=== PATIENT | female | born 1990 | race Caucasian/White ===

== ENCOUNTER 2017-07-08 16:43 | Inpatient (IN) | payer SELFPAY ==
--- NOTE | 2017-07-08 19:33 | ULT ---
OBSTETRIC SONOGRAM 07/08/17 HISTORY: Twin with demise documented at an outside institution. FINDINGS: Multiple transabdominal sonographic views of the gravid uterus show twin intrauterine gestation in ve rtex and transverse presentation. Amniotic fluid is decreased. No heart motion is seen to be associat ed with either fetus. Measurements correlate with 14 weeks, 1 day and 14 weeks, 4 days gestational size. No free fluid is apparent within the maternal pelvis. IMPRESSION: Confirmation of twin nonviable fetuses. POS: NAS
[2017-07-08 19:57] LABS: Bilirubin Negative (Negative); Blood, Urine Negative (Negative); Glucose, Urine (Dipstick) Negative (Negative); Ketone, Urine 80 mg/dL (Negative); Nitrite Negative (Negative); Protein, Urine (Dipstick) Negative (Neg-Trace); Urobilinogen 0.2 mg/dL (0.2-1.0)
[2017-07-08] MEDS ORDERED: Acetaminophen 325 MG TAB ONE (19:58)
[2017-07-08] MEDS ORDERED: Promethazine HCl 25 MG/ML VIAL IM PRN (21:22)
[2017-07-08] MEDS ORDERED: Ondansetron HCl/PF 4 MG/2 ML Vial IVP PRN (21:22)
[2017-07-08 21:51] VITALS: BMI 22.1
[2017-07-08] MEDS: Misoprostol 200 MCG TAB VAG SCH (22:41)
[2017-07-08 22:44] LABS: Hematocrit 39.4 % (36.0-47.0); Mean Platelet Volume 6.1 fL (7.4-10.4); Red Blood Cell (RBC) Count 4.44 mill/uL (4.20-5.40); White Blood Cell (WBC) Count 9.5 thou/uL (4.8-10.8)
[2017-07-08 23:24] LABS: Amphetamine Detected (NotDetected); Methamphetamine Detected (NotDetected)
[2017-07-08 23:25] LABS: Methadone Not Detected (NotDetected)
--- NOTE | 2017-07-09 01:30 | HP ---
DATE OF SERVICE: 07/08/2017 TIME OF SERVICE: 2020 hours. PRESENTING COMPLAINT: A 14-week twin IUFD with cramping and bleeding. HISTORY OF PRESENT ILLNESS: Ms. Alfonso is a 26-year-old 4, para 2, AB 1, now 3, who presen ts with 2 week history of twin IUFD. She was seen in [place] 2 weeks ago and told she had twin IUFD a nd was told to follow up in [place]. However, the patient presents this evening to the emergency room with complaining of cramping and bleeding. She denies fever, rupture of membranes. She denies feta l movement. OB AND [employer] HISTORY: x2, one for failure to progress, one for the repeat SAB x1. No D&C. PAST MEDICAL HISTORY: Hypertension, on atenolol in the past, no meds now. SURGICAL HISTORY: x2, tonsils and adenoids, and PE tubes. MEDICATIONS: None. ALLERGIES: None. SOCIAL HISTORY: Denies tobacco, alcohol, or IV drug abuse. FAMILY HISTORY: Noncontributory. REVIEW OF SYSTEMS: Noncontributory. PHYSICAL EXAMINATION: GENERAL: White female, in no acute distress. VITAL SIGNS: Temperature 98.7, respirations 18, blood pressure 128/82. HEENT: Within normal limits. LUNGS: Clear to auscultation bilaterally. HEART: Regular rhythm. BREASTS: No masses bilaterally. ABDOMEN: Soft, nontender. Fundal height 16 cm. FHTs absence. PELVIC: Vulva, lesions. Vagina, discharge. Cervix, soft, slight bleeding, not grossly dilated. EXTREMITIES: Without clubbing, cyanosis or edema. LABORATORY AND X-RAY FINDINGS: The patient has a beta hCG of 671. A negative urinalysis and a blood type of A positive. Ultrasound reveals a 14-week 1 day and 14-week 4 day twin fetuses without heart activity and subjectively decreased fluid, fundal placenta. My review of the ultrasound films reveals an intact and relatively thick lower uterine segment with slightly subjectively decreased am niotic fluid, fetuses are in transverse position. IMPRESSION: Twin intrauterine 14 weeks gestation, previous x2, spotting, no ev idence of sepsis. PLAN: Discussed with the patient options including Cytotec and D&C. The patient does not desire D&C unless it becomes necessary. We discussed the risks and benefits of all treatment modalities includ ing uterine rupture, retained products of conception, bleeding, etc. We will admit the patient and b egin Cytotec at 600 per vagina q.4 hours, anticipate spontaneous delivery.
[2017-07-09] MEDS: Misoprostol 200 MCG TAB VAG SCH ×2 (01:40→05:40)
[2017-07-09] MEDS: Lactated Ringer's 1,000 ML IV SCH (06:09)
[2017-07-09] MEDS ORDERED: Labetalol HCl 100 MG TAB PO SCH (09:00)
[2017-07-09] MEDS ORDERED: FLU VACC QS2017-18 36 mo. & older 0.5 ML SYRINGE IM ONE (09:00)
[2017-07-09] MEDS ORDERED: Oxytocin 10 UNITS/ML VIAL ONE (09:30)
--- NOTE | 2017-07-09 10:05 | PRG ---
DATE OF SERVICE: 07/09/2017 TIME OF SERVICE: 07:55 SUBJECTIVE: Ms. Alfonso has continued to undergo Cytotec induction of miscarriage for twin IUFD at 14 weeks' gestation. She was receiving Cytotec at 600 mg per vagina q.4 hours. Of note, the patient had a positive urine drug screen for amphetamines. PHYSICAL EXAMINATION: VITAL SIGNS: Patient remains afebrile, blood pressures are 160s-170s/100 and pulse is 100. HEENT: Within normal limits. LUNGS: Clear to auscultation bilaterally. ABDOMEN: Soft and nontender. She is complaining of mild cramping. PELVIC: Vulva without lesions. Vagina without discharge. Cervix 180, -2, soft presenting part is n oted. EXTREMITIES: Without clubbing, cyanosis or edema. IMPRESSION: 1. Twin IUFD. 2. Homeless status. 3. Chronic hypertension. 4. Methamphetamine abuse. PLAN: 1. Labetalol 100 p.o. t.i.d. 2. Continue Cytotec. 3. Anticipate spontaneous delivery. Patient checkout with Dr. Harris will occur in approximately 5 minutes.
[2017-07-09] MEDS ORDERED: LR / Pitocin 40 units/1000 ml 1,000 ML IV SCH (10:18)
[2017-07-09] MEDS ORDERED: Adacel (T-DAP) 0.5 ML VIAL IM ONE (10:18)
[2017-07-09] MEDS ORDERED: Ketorolac Tromethamine 30 MG/ML VIAL IVP SCH (10:18)
[2017-07-09] MEDS ORDERED: Bisacodyl 10 MG SUPP PR PRN (10:18)
[2017-07-09] MEDS ORDERED: Milk Of Magnesia 30 ML UDCUP PO PRN (10:18)
--- NOTE | 2017-07-09 11:08 | PDOC.EVN ---
Event Note - Event Note Event Note: S: I was called to room because patient thinks she passed babies and placenta into the toilet while having a BM. She says she was having a lot of cramping and bleeding and the cramping has since diminished O: NAD Resp unlabored Ltd sono. Clear endometrial cavity, no clots or retained POCs A/P: 14 week twin IUFD delivery effected with cytotec. Delivery was en geo and products were retrieved and sent to pathology.
[2017-07-09] MEDS: Ibuprofen 800 MG TAB PO SCH (17:04)
[2017-07-09] MEDS: Ferrous Sulfate 325 MG TAB PO SCH (17:26)
[2017-07-09] MEDS: Docusate (Surfak) 240 MG CAP PO SCH (22:42)
[2017-07-10] MEDS: Misoprostol 200 MCG TAB VAG SCH (00:37)
[2017-07-10] MEDS: Lactated Ringer's 1,000 ML IV SCH (00:37)
[2017-07-10] MEDS: Ibuprofen 800 MG TAB PO SCH ×2 (00:47→08:59)
[2017-07-10 04:56] LABS: Hematocrit 33.2 % (36.0-47.0); Mean Platelet Volume 6.2 fL (7.4-10.4); Red Blood Cell (RBC) Count 3.75 mill/uL (4.20-5.40); White Blood Cell (WBC) Count 6.7 thou/uL (4.8-10.8)
[2017-07-10 07:41] VITALS: BP 100/56; TEMP 98.3
[2017-07-10] MEDS: Ferrous Sulfate 325 MG TAB PO SCH (09:00)
[2017-07-10] MEDS: Docusate (Surfak) 240 MG CAP PO SCH (09:00)
[2017-07-10] MEDS ORDERED: FLU VACC QS2017-18 36 mo. & older 0.5 ML SYRINGE IM ONE (21:00)
== END 2017-07-10 11:40 | disposition home or self-care (01) | DRG 770 ==
LOC: ERS 16:43 → L&D 21:29 → 3SE 07-09 18:02
PROVIDERS: ADMIT Obstetrics & Gynecology; ATTEND Obstetrics & Gynecology
PROC: 3E0P7VZ Introduction of Hormone into Female Reproductive, Via Natural or Artificial Opening (ICD-10-PCS; 2017-07-08)
PROC: 10D17ZZ Extraction of Products of Conception, Retained, Via Natural or Artificial Opening (ICD-10-PCS; principal; 2017-07-09)
DX: O02.1 Missed abortion (principal); I10 Essential (primary) hypertension; F15.10 Other stimulant abuse, uncomplicated; Z59.0 Homelessness; Z23 Encounter for immunization
CPT/HCPCS: 36415; 76805; 76815; 80306; 81003; 84702; 85027; 86762; 86780; 86900; 86901; 87340; 87389; 87480; 87491; 87510; 87591; 87660; 88307; 90471; 90682; G0008; J0595; J1885; J2590; Q2036